=== PATIENT | female | born 1985 ===

== ENCOUNTER 2018-12-26 09:12 | Emergency (ER) | payer OTHER ==
[2018-12-26 09:15] VITALS: BMI 24.1
[2018-12-26 09:17] VITALS: RESP 18; O2SAT 97
[2018-12-26] MEDS ORDERED: Sodium Chloride 0.9% 1,000 ML IV STA (10:03)
[2018-12-26 10:22] LABS: BASO % 0.3 % (0.0-2.0); EOS % 0.3 % (0.0-4.0); HEMOGLOBIN 12.7 g/dL (12.0-16.0); LYMPH # 1.7 K/uL (1.0-4.3); LYMPH % 20.8 % (20.0-40.0); MEAN CELL VOLUME 90.4 fl (81.0-99.0); MEAN CORPUSCULAR HEMOGLOBIN 30.3 pg (27.0-31.0); MEAN CORPUSCULAR HGB CONC 33.6 g/dL (33.0-37.0); MEAN PLATELET VOLUME 6.3 fl (7.2-11.7); MONO # 1.1 K/uL (0.0-0.8); MONO % 13.4 % (0.0-10.0); NEUT # 5.4 K/uL (1.8-7.0); NEUT % 65.2 % (50.0-75.0); NRBC % 0.1 % (0.0-0.0); RBC 4.2 Mil/uL (3.80-5.20); RED CELL DISTRIBUTION WIDTH 12.5 % (11.5-14.5); WHITE BLOOD COUNT 8.3 K/uL (4.8-10.8)
--- NOTE | 2018-12-26 10:25 | ED PDOC ---
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 denies: Fever, Chills, Urinary Symptoms Additional History Per: Patient Additional Complaint(s): 33yo female, otherwise well, comes to ER reporting abdominal pain for the past 2 days. She states the pain is constant, with nausea, vomiting and diarrhea. patient denies any fever, chills, dysuria or hematuira. She denies known sick contacts or recent foreign travel. No medications taken prior to arrival. PMD: None Abnormal Vaginal Bleeding: No Past Medical History Reviewed: Historical Data, Nursing Documentation, Vital Signs Vital Signs: Last Vital Signs Temp 98.3 F 12/26/18 09:30 Pulse 65 12/26/18 09:30 Resp 18 12/26/18 09:30 BP 95/59 L 12/26/18 09:30 Pulse Ox 97 12/26/18 09:30 Primary Care Provider: FAMILY PROVIDER,NO - Medical History PMH: No Chronic Diseases - Surgical History Surgical History: No Surg Hx - Family History Family History: States: No Known Family Hx - Living Arrangements Living Arrangements: With Family - Social History Current smoker - smoking cessation education provided: No Alcohol: None Drugs: Denies - Home Medications Home Medications: Ambulatory Orders Medication Instructions Recorded Dicyclomine [Bentyl] 20 mg PO QID PRN #10 tab 12/26/18 Ondansetron ODT [Zofran ODT] 4 mg PO Q8H PRN #20 odt 12/26/18 - Allergies Allergies/Adverse Reactions: Allergies Allergy/AdvReac Type Severity Reaction Status Date / Time No Known Allergies Allergy Verified 12/26/18 09:46 Review of Systems ROS Statement: Except As Marked, All Systems Reviewed And Found Negative Constitutional: Negative for: Fever, Chills Gastrointestinal: Positive for: Nausea, Vomiting, Abdominal Pain, Diarrhea Genitourinary Female: Negative for: Dysuria, Frequency, Hematuria Physical Exam - Reviewed Nursing Documentation Reviewed: Yes Vital Signs Reviewed: Yes - Physical Exam Appears: Positive for: Uncomfortable Head Exam: Positive for: ATRAUMATIC, NORMAL INSPECTION, NORMOCEPHALIC Skin: Positive for: Normal Color, Warm, DRY Eye Exam: Positive for: Normal appearance, EOMI, PERRL Neck: Positive for: Normal, Supple Cardiovascular/Chest: Positive for: Regular Rate, Rhythm. Negative for: Tachycardia Respiratory: Positive for: Normal Breath Sounds. Negative for: Respiratory Distress Gastrointestinal/Abdominal: Positive for: Soft, Tenderness (periumbilical). Negative for: Mass, Guarding, Rebound Back: Positive for: Normal Inspection. Negative for: L CVA Tenderness, R CVA Tenderness Extremity: Positive for: Normal ROM Neurological/Psych: Positive for: Awake, Alert, Normal Tone - Laboratory Results Result Diagrams: 12/26/18 10:07 12/26/18 10:07 - ECG O2 Sat by Pulse Oximetry: 97 (RA) Pulse Ox Interpretation: Normal Medical Decision Making Medical Decision Making: Impression: Abdominal pain x 2 days Plan: -- Labs -- UA, UDip -- CT Abdomen/Pelvis -- IV Fluids -- Morphien2 mg IV -- Zofran 4mg IV 1115 Labs reviewed, patient with low platelet count Urinalysis reviewed, no clinically significant abnormalities 1251 CT Abdomen/Pelvis FINDINGS: LOWER THORAX: Small hiatal hernia identified with lung bases otherwise unremarkable appearing. LIVER: Unremarkable. No gross lesion or ductal dilatation. GALLBLADDER AND BILE DUCTS: Unremarkable. PANCREAS: Unremarkable. No gross lesion or ductal dilatation. SPLEEN: Unremarkable. ADRENALS: Unremarkable. No mass. KIDNEYS AND URETERS: Unremarkable. No hydronephrosis. No solid mass. VASCULATURE: Unremarkable. No aortic aneurysm. No aortic atherosclerotic calcification or mural plaque present. BOWEL: Evaluation of the gastrointestinal tract is limited due to the lack of oral contrast administration. No bowel obstruction. The majority of small and large bowel is decompressed this option of gas and a bit of retained fecal material at the mid large-bowel segment. No gross mural thickening. APPENDIX: Normal appendix. PERITONEUM: Unremarkable. No free fluid. No free air. LYMPH NODES: Unremarkable. No enlarged lymph nodes. BLADDER: Unremarkable. REPRODUCTIVE: Unremarkable. BONES: No acute fracture. OTHER FINDINGS: None. IMPRESSION: No bowel urinary tract obstruction, mesenteric edema, ascites or free intra peritoneal gas collection evident. Bowel is decompressed and limited evaluation with exception there is no bowel obstruction appreciated throughout the abdomen or pelvis. No gross pattern of enteritis or colitis. 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 On reassessment, patient reports improvement in her abdominal pain. Patient prescribed zofran for nausea and bentyl for abdominal pain; instructed to take medications as prescribed. Patient informed to follow up with PMD/Clinic in 2-3 days regarding thrombocytopenia due to unknown cause. Patient expresses understanding of findings and plan of care. Stable for discharge home. ScribeAttestation: Documented byLee Ann Loving acting as a scribe for Ariela Harry MD. Provider ScribeAttestation: All medical record entries made by the Scribe were at my direction and personally dictated by me. I have reviewed the chart and agree that the record accurately reflects my personal performance of the history, physical exam, medic al decision making, and the department course for this patient. I have also personally directed, reviewed, and agree with the discharge instructions and disposition. Disposition - Clinical Impression Clinical Impression: Gastroenteritis, Abdominal pain - Disposition Referrals: [facility] [Outside] Disposition: Routine/Home Disposition Time: 12:53 Condition: IMPROVED Prescriptions: Dicyclomine [Bentyl] 20 mg PO QID PRN #10 tab PRN Reason: Pain, Moderate (4-7) Ondansetron ODT [Zofran ODT] 4 mg PO Q8H PRN #20 odt PRN Reason: Nausea/Vomiting Instructions: Acute Abdomen (Belly Pain), Gastroenteritis (ED) Forms: [employer] (Yakut) Print Language: CHINESE
[2018-12-26 10:28] LABS: SQUAMOUS EPITHIAL 12 /hpf (0-5); URINE BACTERIA RARE (<OCC); URINE BILIRUBIN NEGATIVE (NEGATIVE); URINE BLOOD MODERATE (NEGATIVE); URINE COLOR YELLOW (YELLOW); URINE GLUCOSE (UA) NEG (NEGATIVE); URINE LEUKOCYTE ESTERASE NEG Leu/uL (Negative); URINE PROTEIN 30 mg/dL (NEGATIVE); URINE UROBILINOGEN 0.2-1.0 mg/dL (0.2-1.0)
[2018-12-26 10:29] LABS: INR 1.1; PROTHROMBIN TIME 12.8 Seconds (9.8-13.1)
[2018-12-26 10:29] LABS: URINE CLARITY SLIGHT-CLOUDY (Clear)
[2018-12-26 10:31] LABS: ALB/GLOB RATIO 1.4 (1.0-2.1); ALBUMIN 4.3 g/dL (3.5-5.0); ALT/SGPT 37 U/L (9-52); AST/SGOT 30 U/L (14-36); BLOOD UREA NITROGEN 7 mg/dl (7-17); CALCIUM 8.6 mg/dL (8.4-10.2); GFR NON-AFRICAN AMERICAN > 60; LIPASE 17 U/L (23-300)
[2018-12-26 10:32] LABS: PARTIAL THROMBOPLASTIN TIME 30.5 Seconds (25.6-37.1)
[2018-12-26] MEDS ORDERED: Sodium Chloride 0.9% 50 ML IV ONE (11:07)
[2018-12-26] MEDS ORDERED: Iohexol 300 100 ML IJ ONE (11:07)
--- NOTE | 2018-12-26 11:50 | CT ---
Date of service: 12/26/2018 PROCEDURE: CT Abdomen and Pelvis with contrast HISTORY: Periumbilical pain COMPARISON: None. TECHNIQUE: Following the intravenous administration of iodinated contrast material, a CT examination of the abdomen and pelvis was performed from the domes of the diaphragms to the symphysis pubis with reformatted datasets provided in axial, sagittal and coronal planes. Oral contrast was not administered as per referring physician request. Contrast dose: Omnipaque 300, 95 cc Radiation dose: Total exam DLP = 412.22 mGy-cm. This CT exam was performed using one or more of the following dose reduction techniques: Automated exposure control, adjustment of the mA and/or kV according to patient size, and/or use of iterative reconstruction technique. FINDINGS: LOWER THORAX: Small hiatal hernia identified with lung bases otherwise unremarkable appearing. LIVER: Unremarkable. No gross lesion or ductal dilatation. GALLBLADDER AND BILE DUCTS: Unremarkable. PANCREAS: Unremarkable. No gross lesion or ductal dilatation. SPLEEN: Unremarkable. ADRENALS: Unremarkable. No mass. KIDNEYS AND URETERS: Unremarkable. No hydronephrosis. No solid mass. VASCULATURE: Unremarkable. No aortic aneurysm. No aortic atherosclerotic calcification or mural plaque present. BOWEL: Evaluation of the gastrointestinal tract is limited due to the lack of oral contrast administration. No bowel obstruction. The majority of small and large bowel is decompressed this option of gas and a bit of retained fecal material at the mid large-bowel segment. No gross mural thickening. APPENDIX: Normal appendix. PERITONEUM: Unremarkable. No free fluid. No free air. LYMPH NODES: Unremarkable. No enlarged lymph nodes. BLADDER: Unremarkable. REPRODUCTIVE: Unremarkable. BONES: No acute fracture. OTHER FINDINGS: None. IMPRESSION: No bowel urinary tract obstruction, mesenteric edema, ascites or free intra peritoneal gas collection evident. Bowel is decompressed and limited evaluation with exception there is no bowel obstruction appreciated throughout the abdomen or pelvis. No gross pattern of enteritis or colitis.
[2018-12-26 15:02] VITALS: BP 106/67; PULSE 72; TEMP 99.7
== END 2018-12-26 15:09 | disposition home or self-care (01) ==
LOC: H.ER 09:12
DX: K52.9 Noninfective gastroenteritis and colitis, unspecified (principal); R10.9 Unspecified abdominal pain; Z79.899 Other long term (current) drug therapy
CPT/HCPCS: 74177; 80053; 81003; 83690; 85025; 85610; 85730; 96361; 96374; 96375; 99284; J1885; J2270; J2405; J7030; Q9967

== ENCOUNTER 2019-01-01 09:54 | Observation (INO) | payer OTHER ==
[2019-01-01 10:00] VITALS: BMI 23.2
--- NOTE | 2019-01-01 11:07 | ED PDOC ---
HPI: Abdomen Time Seen by Provider: 01/01/19 10:09 Chief Complaint (Nursing): Abdominal Pain Chief Complaint (Provider): Abdominal Pain History Per: Patient History/Exam Limitations: no limitations Location Of Pain/Discomfort: Other (Lower) Associated Symptoms: Back Pain Additional Complaint(s): 33 years old female presents to ER on referral from PMD for evaluation of lower abdominal pain and back pain. On her visit to PMD, patient was diagnosed with UTI and reports symptoms resolved with antibiotics. Patient currently has no other symptoms. PMD: Jovanni Raya Past Medical History Reviewed: Historical Data, Nursing Documentation, Vital Signs Vital Signs: Last Vital Signs Temp 98.2 F 01/01/19 10:11 Pulse 72 01/01/19 10:11 Resp 18 01/01/19 10:11 BP 96/60 L 01/01/19 10:11 Pulse Ox 100 01/01/19 10:11 Primary Care Provider: Jovanni Raya - Medical History PMH: No Chronic Diseases - Surgical History Surgical History: No Surg Hx - Family History Family History: States: Unknown Family Hx - Social History Current smoker - smoking cessation education provided: Yes Alcohol: Social Drugs: Denies - Home Medications Home Medications: Ambulatory Orders Medication Instructions Recorded predniSONE [predniSONE Tab] 60 mg PO DAILY 8 Days tab 01/02/19 - Allergies Allergies/Adverse Reactions: Allergies Allergy/AdvReac Type Severity Reaction Status Date / Time No Known Allergies Allergy Verified 12/26/18 09:46 Review of Systems ROS Statement: Except As Marked, All Systems Reviewed And Found Negative Gastrointestinal: Positive for: Abdominal Pain (lower. Resolved now) Musculoskeletal: Positive for: Back Pain (resolved now) Physical Exam - Reviewed Nursing Documentation Reviewed: Yes Vital Signs Reviewed: Yes - Physical Exam Appears: Positive for: Well, No Acute Distress Head Exam: Positive for: ATRAUMATIC, NORMOCEPHALIC Skin: Positive for: Normal Color, Warm, Dry Eye Exam: Positive for: Normal appearance, EOMI, PERRL ENT: Positive for: Normal ENT Inspection Neck: Positive for: Normal, Painless ROM, Supple Cardiovascular/Chest: Positive for: Regular Rate, Rhythm. Negative for: Murmur Respiratory: Positive for: Normal Breath Sounds. Negative for: Respiratory Distress Gastrointestinal/Abdominal: Positive for: Normal Exam, Soft. Negative for: Tenderness Back: Positive for: Normal Inspection. Negative for: L CVA Tenderness, R CVA Tenderness Extremity: Positive for: Normal ROM. Negative for: Pedal Edema, Deformity Neurological/Psych: Positive for: Awake, Alert, Oriented (x3) - Laboratory Results Result Diagrams: 01/02/19 06:10 01/02/19 06:10 - ECG O2 Sat by Pulse Oximetry: 100 (RA) Pulse Ox Interpretation: Normal Medical Decision Making Medical Decision Making: Time: 1037 MDM: Sent by PMD for repeat labs specifically look at platelets, otherwise asymptomatic 1237 Patient with platelets have 18, will be admitted to med surg, Dr. Hamm Will place consult with hematology Dr. Cramer. Scribe Attestation: Documented by Ena Koenig, acting as a scribe for Gertrude Stephenson MD. Provider Scribe Attestation: All medical record entries made by the Scribe were at my direction and personally dictated by me. I have reviewed the chart and agree that the record accurately reflects my personal performance of the history, physical exam, medical decision making, and the department course for this patient. I have also personally directed, reviewed, and agree with the discharge instructions and disposition. Disposition - Clinical Impression Clinical Impression: Thrombocytopenia - Disposition Disposition Time: 12:37 Condition: FAIR
[2019-01-01 11:14] LABS: SQUAMOUS EPITHIAL 9 /hpf (0-5); URINE BILIRUBIN NEGATIVE (NEGATIVE); URINE BLOOD MODERATE (NEGATIVE); URINE CLARITY SLIGHTY-CLOUDY (Clear); URINE COLOR YELLOW (YELLOW); URINE GLUCOSE (UA) NEG (NEGATIVE); URINE LEUKOCYTE ESTERASE NEG Leu/uL (Negative); URINE PROTEIN NEGATIVE (NEGATIVE); URINE UROBILINOGEN 0.2-1.0 mg/dL (0.2-1.0)
[2019-01-01 11:15] LABS: BASO % 0.3 % (0.0-2.0); EOS % 0.2 % (0.0-4.0); HEMOGLOBIN 12.8 g/dL (12.0-16.0); LYMPH # 1.5 K/uL (1.0-4.3); LYMPH % 13.8 % (20.0-40.0); MEAN CELL VOLUME 87.8 fl (81.0-99.0); MEAN CORPUSCULAR HEMOGLOBIN 29.8 pg (27.0-31.0); MEAN CORPUSCULAR HGB CONC 33.9 g/dL (33.0-37.0); MEAN PLATELET VOLUME 8.5 fl (7.2-11.7); MONO # 1.3 K/uL (0.0-0.8); MONO % 11.6 % (0.0-10.0); NEUT # 8.3 K/uL (1.8-7.0); NEUT % 74.1 % (50.0-75.0); NRBC % 0.1 % (0.0-0.0); RBC 4.3 Mil/uL (3.80-5.20); RED CELL DISTRIBUTION WIDTH 12.2 % (11.5-14.5)
[2019-01-01 11:16] LABS: BLOOD UREA NITROGEN 11 mg/dl (7-17); GFR NON-AFRICAN AMERICAN > 60
[2019-01-01 11:44] LABS: WHITE BLOOD COUNT 11.2 K/uL (4.8-10.8)
[2019-01-01 13:43] LABS: INR 1.1; PROTHROMBIN TIME 12.8 Seconds (9.8-13.1)
[2019-01-01 13:47] LABS: PARTIAL THROMBOPLASTIN TIME 25.9 Seconds (25.6-37.1)
[2019-01-01 14:03] LABS: BARBITURATES, UR NEGATIVE (NEGATIVE); BENZODIAZEPINES, UR NEGATIVE (NEGATIVE); OPIATES, UR NEGATIVE (NEGATIVE); PHENCYCLIDINE, UR NEGATIVE (NEGATIVE)
--- NOTE | 2019-01-01 14:25 | CP.PCM.HP ---
<Judith He - Last Filed: 01/01/19 15:16> History of Present Illness - History of Present Illness History of Present Illness: 33-year-old female presents to [facility] ED at the request of her PMD for abnormal lab results. She was last seen at [facility] ED on 12/26, 6 days prior to presentation for abdominal pain and her platelet count was 87. Today it is 18. She has noticed recent red spots along her upper abdomen laterally and on her right shoulder but denies any light headedness, bleeding, menorhhagia, nosebleeds, CP, SOB and fever. No previous episodes before. PMD: Dr Raya PMH: denies Surgical Hx: denies OBHx: no complications, denies menorrhagia Family Hx: denies Social: social tobacco (1 pack/week) and etoh (weekends), denies illicit drug use Present on Admission - Present on Admission Any Indicators Present on Admission: No Review of Systems - Review of Systems Review of Systems: all other systems reviewed and negative unless noted in HPI Past Patient History - Past Social History Alcohol: Social Drugs: Denies - CARDIAC Hx Cardiac Disorders: No - PULMONARY Hx Respiratory Disorders: No - MUSCULOSKELETAL/RHEUMATOLOGICAL Hx Musculoskeletal Disorders: Yes Hx Back Pain: Yes - GENITOURINARY/GYNECOLOGICAL Hx Genitourinary Disorders: Yes Hx Urinary Tract Infection: Yes - PSYCHIATRIC Hx Psychophysiologic Disorder: No Hx Substance Use: No - SURGICAL HISTORY Hx Surgeries: Yes Hx Section: Yes (X 1) - ANESTHESIA Hx Anesthesia: Yes Meds Allergies/Adverse Reactions: Allergies Allergy/AdvReac Type Severity Reaction Status Date / Time No Known Allergies Allergy Verified 12/26/18 09:46 Physical Exam - Constitutional Appears: Non-toxic, No Acute Distress - Head Exam Head Exam: NORMAL INSPECTION - Eye Exam Eye Exam: Normal appearance - ENT Exam ENT Exam: Mucous Membranes Moist - Cardiovascular Exam Cardiovascular Exam: REGULAR RHYTHM - GI/Abdominal Exam GI & Abdominal Exam: Normal Bowel Sounds, Soft. absent: Tenderness - Neurological Exam Neurological exam: Alert, Normal Gait, Oriented x3 - Psychiatric Exam Psychiatric exam: Normal Affect, Normal Mood - Skin Skin Exam: Normal Color, Warm Additional comments: rash - along pper abdomen, chest and right biceps area. Small, macular red spots. Results - Vital Signs Recent Vital Signs: Last Vital Signs Temp 98.2 F 01/01/19 10:11 Pulse 72 01/01/19 10:11 Resp 18 01/01/19 10:11 BP 96/60 L 01/01/19 10:11 Pulse Ox 100 01/01/19 12:51 - Labs Result Diagrams: 01/01/19 10:50 01/01/19 10:50 Labs: Laboratory Results - last 24 hr 01/01/19 01/01/19 01/01/19 10:50 10:50 10:50 WBC 11.2 H RBC 4.30 Hgb 12.8 Hct 37.7 MCV 87.8 D MCH 29.8 MCHC 33.9 RDW 12.2 Plt Count 18 L* D MPV 8.5 Neut % (Auto) 74.1 Lymph % (Auto) 13.8 L [place] % (Auto) 11.6 H Eos % (Auto) 0.2 Baso % (Auto) 0.3 Neut # (Auto) 8.3 H Lymph # (Auto) 1.5 [place] # (Auto) 1.3 H Eos # (Auto) 0.0 Baso # (Auto) 0.0 PT INR APTT Sodium 138 Potassium 3.8 Chloride 96 L Carbon Dioxide 33 H Anion Gap 13 BUN 11 Creatinine 0.6 L Est GFR ( Amer) > 60 Est GFR (Non-Af Amer) > 60 Random Glucose 100 Calcium 9.0 Urine Color Yellow Urine Clarity Slighty-cloudy Urine pH 7.0 Ur Specific Apex 1.008 Urine Protein Negative Urine Glucose (UA) Neg Urine Ketones Negative Urine Blood Moderate Urine Nitrate Negative Urine Bilirubin Negative Urine Urobilinogen 0.2-1.0 Ur Leukocyte Esterase Neg Urine RBC (Auto) 2 Urine Microscopic WBC 2 Ur Squamous Epith Cells 9 H Urine Opiates Screen Urine Methadone Screen Ur Barbiturates Screen Ur Phencyclidine Scrn Ur Amphetamines Screen U Benzodiazepines Scrn U Oth Cocaine Metabols U Cannabinoids Screen 01/01/19 01/01/19 13:12 13:12 WBC RBC Hgb Hct MCV MCH MCHC RDW Plt Count MPV Neut % (Auto) Lymph % (Auto) [place] % (Auto) Eos % (Auto) Baso % (Auto) Neut # (Auto) Lymph # (Auto) [place] # (Auto) Eos # (Auto) Baso # (Auto) PT 12.8 INR 1.1 APTT 25.9 Sodium Potassium Chloride Carbon Dioxide Anion Gap BUN Creatinine Est GFR ( Amer) Est GFR (Non-Af Amer) Random Glucose Calcium Urine Color Urine Clarity Urine pH Ur Specific Apex Urine Protein Urine Glucose (UA) Urine Ketones Urine Blood Urine Nitrate Urine Bilirubin Urine Urobilinogen Ur Leukocyte Esterase Urine RBC (Auto) Urine Microscopic WBC Ur Squamous Epith Cells Urine Opiates Screen Negative Urine Methadone Screen Negative Ur Barbiturates Screen Negative Ur Phencyclidine Scrn Negative Ur Amphetamines Screen Negative U Benzodiazepines Scrn Negative U Oth Cocaine Metabols Negative U Cannabinoids Screen Negative Assessment & Plan - Assessment and Plan (Free Text) Assessment: 33-year-old female presents to [facility] ED at the request of her PMD for thrombocytopenia; platelet ct 18. Plan: Thrombocytopenia -Platelet ct 18 (01/01), down from 87 on 12/26 -likely ITP -f/u HIV -f/u HCV -Heme/onc consulted, Dr Cramer, input and recs appreciated -s/p methylpredisolone 125 mg in ED -Solumedrol 40mg IV Q12H -Regular diet DVT Prophylaxis -SCD <Candis Hamm - Last Filed: 01/01/19 19:10> Results - Vital Signs Recent Vital Signs: Last Vital Signs Temp 97.2 F L 01/01/19 17:37 Pulse 69 01/01/19 18:01 Resp 19 01/01/19 18:01 BP 100/51 L 01/01/19 17:37 Pulse Ox 97 01/01/19 18:01 - Labs Result Diagrams: 01/01/19 10:50 01/01/19 10:50 Labs: Laboratory Results - last 24 hr 01/01/19 01/01/19 01/01/19 10:50 10:50 10:50 WBC 11.2 H RBC 4.30 Hgb 12.8 Hct 37.7 MCV 87.8 D MCH 29.8 MCHC 33.9 RDW 12.2 Plt Count 18 L* D Manual Plt Count MPV 8.5 Neut % (Auto) 74.1 Lymph % (Auto) 13.8 L [place] % (Auto) 11.6 H Eos % (Auto) 0.2 Baso % (Auto) 0.3 Neut # (Auto) 8.3 H Lymph # (Auto) 1.5 [place] # (Auto) 1.3 H Eos # (Auto) 0.0 Baso # (Auto) 0.0 PT INR APTT Sodium 138 Potassium 3.8 Chloride 96 L Carbon Dioxide 33 H Anion Gap 13 BUN 11 Creatinine 0.6 L Est GFR ( Amer) > 60 Est GFR (Non-Af Amer) > 60 Random Glucose 100 Calcium 9.0 Urine Color Yellow Urine Clarity Slighty-cloudy Urine pH 7.0 Ur Specific Apex 1.008 Urine Protein Negative Urine Glucose (UA) Neg Urine Ketones Negative Urine Blood Moderate Urine Nitrate Negative Urine Bilirubin Negative Urine Urobilinogen 0.2-1.0 Ur Leukocyte Esterase Neg Urine RBC (Auto) 2 Urine Microscopic WBC 2 Ur Squamous Epith Cells 9 H Urine Opiates Screen Urine Methadone Screen Ur Barbiturates Screen Ur Phencyclidine Scrn Ur Amphetamines Screen U Benzodiazepines Scrn U Oth Cocaine Metabols U Cannabinoids Screen 01/01/19 01/01/19 01/01/19 13:12 13:12 13:12 WBC RBC Hgb Hct MCV MCH MCHC RDW Plt Count Manual Plt Count 13 L* MPV Neut % (Auto) Lymph % (Auto) [place] % (Auto) Eos % (Auto) Baso % (Auto) Neut # (Auto) Lymph # (Auto) [place] # (Auto) Eos # (Auto) Baso # (Auto) PT 12.8 INR 1.1 APTT 25.9 Sodium Potassium Chloride Carbon Dioxide Anion Gap BUN Creatinine Est GFR ( Amer) Est GFR (Non-Af Amer) Random Glucose Calcium Urine Color Urine Clarity Urine pH Ur Specific Apex Urine Protein Urine Glucose (UA) Urine Ketones Urine Blood Urine Nitrate Urine Bilirubin Urine Urobilinogen Ur Leukocyte Esterase Urine RBC (Auto) Urine Microscopic WBC Ur Squamous Epith Cells Urine Opiates Screen Negative Urine Methadone Screen Negative Ur Barbiturates Screen Negative Ur Phencyclidine Scrn Negative Ur Amphetamines Screen Negative U Benzodiazepines Scrn Negative U Oth Cocaine Metabols Negative U Cannabinoids Screen Negative Attending/Attestation - Attestation I have personally seen and examined this patient.: Yes I have fully participated in the care of the patient.: Yes I have reviewed all pertinent clinical information: Yes Notes (Text): Agree with findings and plan as above.
[2019-01-01] MEDS ORDERED: methylPREDNISolone 40 MG in Sodium Chloride 0.9% 50 ML IVPB SCH (21:00)
[2019-01-01] MEDS: MethylPREDNISolone 40 mg Vial IVP SCH (22:08)
[2019-01-01 23:30] VITALS: RESP 18
--- NOTE | 2019-01-01 23:50 | CP.PCM.CON ---
History of Present Illness - History of Present Illness History of Present Illness: 33 year old female with no past medical history presenting with thrombocytopenia. The patient notes she was told to report to the ER for low platelets. Her platelets were found to be 18,000 in the ER. She does report to easy bruising. Of note, her platelets were 80,000 on last presentation to the ER a few days ago. Past medical history: None Past surgical history: Family history: Denies hematologic and oncologic problems Social history: Social tobacco and alcohol Allergies: NKA Review of systems: All remaining review of systems including HEENT, cardiovascular, respiratory, gastrointestinal, genitourinary, musculoskeletal, dermatologic, neurologic, and psychiatric are negative unless mentioned in the HPI Past Patient History - Past Medical History & Family History Past Medical History?: Yes - Past Social History Smoking Status: Current Some Days Smoker - CARDIAC Hx Cardiac Disorders: No - PULMONARY Hx Respiratory Disorders: No - HEMATOLOGICAL/ONCOLOGICAL Other/Comment: thrombocytopenia - MUSCULOSKELETAL/RHEUMATOLOGICAL Hx Falls: No - GENITOURINARY/GYNECOLOGICAL Hx Genitourinary Disorders: Yes Hx Urinary Tract Infection: Yes - PSYCHIATRIC Hx Substance Use: No (denies) - SURGICAL HISTORY Hx Surgeries: Yes Hx Section: Yes (X 1) - ANESTHESIA Hx Anesthesia: Yes Meds Allergies/Adverse Reactions: Allergies Allergy/AdvReac Type Severity Reaction Status Date / Time No Known Allergies Allergy Verified 12/26/18 09:46 - Medications Medications: Current Medications Acetaminophen (Tylenol 325mg Tab) 650 mg PO Q6 PRN PRN Reason: Pain, Mild (1-3) Methylprednisolone (Solu-Medrol) 40 mg IVP Q12 JOSUE Last Admin: 01/01/19 22:08 Dose: 40 mg Physical Exam - Head Exam Head Exam: ATRAUMATIC - Eye Exam Eye Exam: Normal appearance - ENT Exam ENT Exam: Mucous Membranes Dry - Respiratory Exam Respiratory Exam: NORMAL BREATHING PATTERN - Cardiovascular Exam Cardiovascular Exam: +S1, +S2 - GI/Abdominal Exam GI & Abdominal Exam: Normal Bowel Sounds - Extremities Exam Extremities exam: Positive for: normal inspection - Neurological Exam Neurological exam: Oriented x3 - Psychiatric Exam Psychiatric exam: Normal Affect, Normal Mood - Skin Skin Exam: Warm Results - Vital Signs Recent Vital Signs: Last Vital Signs Temp 97.8 F 01/01/19 23:29 Pulse 70 01/01/19 23:29 Resp 18 01/01/19 23:29 BP 96/58 L 01/01/19 23:29 Pulse Ox 98 01/01/19 23:29 - Labs Result Diagrams: 01/01/19 10:50 01/01/19 10:50 Labs: Laboratory Results - last 24 hr 01/01/19 01/01/19 01/01/19 10:50 10:50 10:50 WBC 11.2 H RBC 4.30 Hgb 12.8 Hct 37.7 MCV 87.8 D MCH 29.8 MCHC 33.9 RDW 12.2 Plt Count 18 L* D Manual Plt Count MPV 8.5 Neut % (Auto) 74.1 Lymph % (Auto) 13.8 L [place] % (Auto) 11.6 H Eos % (Auto) 0.2 Baso % (Auto) 0.3 Neut # (Auto) 8.3 H Lymph # (Auto) 1.5 [place] # (Auto) 1.3 H Eos # (Auto) 0.0 Baso # (Auto) 0.0 PT INR APTT Sodium 138 Potassium 3.8 Chloride 96 L Carbon Dioxide 33 H Anion Gap 13 BUN 11 Creatinine 0.6 L Est GFR ( Amer) > 60 Est GFR (Non-Af Amer) > 60 Random Glucose 100 Calcium 9.0 Urine Color Yellow Urine Clarity Slighty-cloudy Urine pH 7.0 Ur Specific [place] 1.008 Urine Protein Negative Urine Glucose (UA) Neg Urine Ketones Negative Urine Blood Moderate Urine Nitrate Negative Urine Bilirubin Negative Urine Urobilinogen 0.2-1.0 Ur Leukocyte Esterase Neg Urine RBC (Auto) 2 Urine Microscopic WBC 2 Ur Squamous Epith Cells 9 H Urine Opiates Screen Urine Methadone Screen Ur Barbiturates Screen Ur Phencyclidine Scrn Ur Amphetamines Screen U Benzodiazepines Scrn U Oth Cocaine Metabols U Cannabinoids Screen 01/01/19 01/01/19 01/01/19 13:12 13:12 13:12 WBC RBC Hgb Hct MCV MCH MCHC RDW Plt Count Manual Plt Count 13 L* MPV Neut % (Auto) Lymph % (Auto) [place] % (Auto) Eos % (Auto) Baso % (Auto) Neut # (Auto) Lymph # (Auto) [place] # (Auto) Eos # (Auto) Baso # (Auto) PT 12.8 INR 1.1 APTT 25.9 Sodium Potassium Chloride Carbon Dioxide Anion Gap BUN Creatinine Est GFR ( Amer) Est GFR (Non-Af Amer) Random Glucose Calcium Urine Color Urine Clarity Urine pH Ur Specific [place] Urine Protein Urine Glucose (UA) Urine Ketones Urine Blood Urine Nitrate Urine Bilirubin Urine Urobilinogen Ur Leukocyte Esterase Urine RBC (Auto) Urine Microscopic WBC Ur Squamous Epith Cells Urine Opiates Screen Negative Urine Methadone Screen Negative Ur Barbiturates Screen Negative Ur Phencyclidine Scrn Negative Ur Amphetamines Screen Negative U Benzodiazepines Scrn Negative U Oth Cocaine Metabols Negative U Cannabinoids Screen Negative Assessment & Plan (1) Thrombocytopenia Assessment and Plan: likely ITP - no bleeding on steroids plt transfusion if develops bleeding repeat CBC in AM Thank you for this interesting consult Status: Acute
[2019-01-02 06:57] LABS: HEMOGLOBIN 12.8 g/dL (12.0-16.0); MEAN CORPUSCULAR HEMOGLOBIN 29.8 pg (27.0-31.0); MEAN CORPUSCULAR HGB CONC 33.9 g/dL (33.0-37.0); RBC 4.28 Mil/uL (3.80-5.20); RED CELL DISTRIBUTION WIDTH 12.3 % (11.5-14.5); WHITE BLOOD COUNT 12.1 K/uL (4.8-10.8)
[2019-01-02 07:14] LABS: ALB/GLOB RATIO 1.3 (1.0-2.1); ALBUMIN 4.1 g/dL (3.5-5.0); ALT/SGPT 31 U/L (9-52); AST/SGOT 24 U/L (14-36); BLOOD UREA NITROGEN 12 mg/dl (7-17); CALCIUM 8.7 mg/dL (8.4-10.2); GFR NON-AFRICAN AMERICAN > 60
[2019-01-02 09:33] VITALS: BP 101/65; PULSE 66; TEMP 97.7
[2019-01-02] MEDS: MethylPREDNISolone 40 mg Vial IVP SCH (09:49)
--- NOTE | 2019-01-02 12:36 | CP.PCM.DIS ---
<Judith He - Last Filed: 01/02/19 12:43> Provider - Provider Date of Admission: 01/01/19 12:36 Attending physician: Candis Hamm DO Consults: 01/01/19 12:39 Hematology Oncology Consult Stat Comment: Consulting Provider: Krzysztof Cramer Consulting Physician: Krzysztof Cramer Reason for Consult: thrombocytopenia Time Spent in preparation of Discharge (in minutes): 20 Diagnosis - Discharge Diagnosis (1) Thrombocytopenia Status: Acute Hospital Course - Lab Results Lab Results: Most Recent Lab Values WBC 12.1 K/uL (4.8-10.8) H 01/02/19 06:10 RBC 4.28 Mil/uL (3.80-5.20) 01/02/19 06:10 Hgb 12.8 g/dL (12.0-16.0) 01/02/19 06:10 Hct 37.7 % (34.0-47.0) 01/02/19 06:10 MCV 88.0 fl (81.0-99.0) 01/02/19 06:10 MCH 29.8 pg (27.0-31.0) 01/02/19 06:10 MCHC 33.9 g/dL (33.0-37.0) 01/02/19 06:10 RDW 12.3 % (11.5-14.5) 01/02/19 06:10 Plt Count 50 K/uL (130-400) L D 01/02/19 06:10 Manual Plt Count 13 K/uL (130-400) L* 01/01/19 13:12 MPV 8.5 fl (7.2-11.7) 01/01/19 10:50 Neut % (Auto) 74.1 % (50.0-75.0) 01/01/19 10:50 Lymph % (Auto) 13.8 % (20.0-40.0) L 01/01/19 10:50 [place] % (Auto) 11.6 % (0.0-10.0) H 01/01/19 10:50 Eos % (Auto) 0.2 % (0.0-4.0) 01/01/19 10:50 Baso % (Auto) 0.3 % (0.0-2.0) 01/01/19 10:50 Neut # (Auto) 8.3 K/uL (1.8-7.0) H 01/01/19 10:50 Lymph # (Auto) 1.5 K/uL (1.0-4.3) 01/01/19 10:50 [place] # (Auto) 1.3 K/uL (0.0-0.8) H 01/01/19 10:50 Eos # (Auto) 0.0 K/uL (0.0-0.7) 01/01/19 10:50 Baso # (Auto) 0.0 K/uL (0.0-0.2) 01/01/19 10:50 PT 12.8 Seconds (9.8-13.1) 01/01/19 13:12 INR 1.1 01/01/19 13:12 APTT 25.9 Seconds (25.6-37.1) 01/01/19 13:12 Sodium 138 mmol/l (132-148) 01/02/19 06:10 Potassium 4.1 MMOL/L (3.6-5.0) 01/02/19 06:10 Chloride 97 mmol/L (98-107) L 01/02/19 06:10 Carbon Dioxide 33 mmol/L (22-30) H 01/02/19 06:10 Anion Gap 12 (10-20) 01/02/19 06:10 BUN 12 mg/dl (7-17) 01/02/19 06:10 Creatinine 0.5 mg/dl (0.7-1.2) L 01/02/19 06:10 Est GFR ( Amer) > 60 01/02/19 06:10 Est GFR (Non-Af Amer) > 60 01/02/19 06:10 Random Glucose 127 mg/dL (65-105) H 01/02/19 06:10 Calcium 8.7 mg/dL (8.4-10.2) 01/02/19 06:10 Total Bilirubin 0.3 mg/dl (0.2-1.3) 01/02/19 06:10 AST 24 U/L (14-36) 01/02/19 06:10 ALT 31 U/L (9-52) 01/02/19 06:10 Alkaline Phosphatase 86 U/L (38-126) 01/02/19 06:10 Total Protein 7.2 G/DL (6.3-8.2) 01/02/19 06:10 Albumin 4.1 g/dL (3.5-5.0) 01/02/19 06:10 Globulin 3.1 gm/dL (2.2-3.9) 01/02/19 06:10 Albumin/Globulin Ratio 1.3 (1.0-2.1) 01/02/19 06:10 Urine Color Yellow (YELLOW) 01/01/19 10:50 Urine Clarity Slighty-cloudy (Clear) 01/01/19 10:50 Urine pH 7.0 (5.0-8.0) 01/01/19 10:50 Ur Specific [place] 1.008 (1.003-1.030) 01/01/19 10:50 Urine Protein Negative mg/dL (NEGATIVE) 01/01/19 10:50 Urine Glucose (UA) Neg mg/dL (NEGATIVE) 01/01/19 10:50 Urine Ketones Negative mg/dL (NEGATIVE) 01/01/19 10:50 Urine Blood Moderate (NEGATIVE) 01/01/19 10:50 Urine Nitrate Negative (NEGATIVE) 01/01/19 10:50 Urine Bilirubin Negative (NEGATIVE) 01/01/19 10:50 Urine Urobilinogen 0.2-1.0 mg/dL (0.2-1.0) 01/01/19 10:50 Ur Leukocyte Esterase Neg Marj/uL (Negative) 01/01/19 10:50 Urine RBC (Auto) 2 /hpf (0-3) 01/01/19 10:50 Urine Microscopic WBC 2 /hpf (0-5) 01/01/19 10:50 Ur Squamous Epith Cells 9 /hpf (0-5) H 01/01/19 10:50 Urine Opiates Screen Negative (NEGATIVE) 01/01/19 13:12 Urine Methadone Screen Negative (NEGATIVE) 01/01/19 13:12 Ur Barbiturates Screen Negative (NEGATIVE) 01/01/19 13:12 Ur Phencyclidine Scrn Negative (NEGATIVE) 01/01/19 13:12 Ur Amphetamines Screen Negative (NEGATIVE) 01/01/19 13:12 U Benzodiazepines Scrn Negative (NEGATIVE) 01/01/19 13:12 U Oth Cocaine Metabols Negative (NEGATIVE) 01/01/19 13:12 U Cannabinoids Screen Negative (NEGATIVE) 01/01/19 13:12 HIV-1 Ab Rapid Screen Non reactive (NON REAC) 01/02/19 06:10 - Hospital Course Hospital Course: 33-year-old female presented to [facility] ED at the request of her PMD for abnormal lab results. She was last seen at [facility] ED on 12/26, 6 days prior to presentation for abdominal pain and her platelet count was 87 on admission it was 18, manual 13. She has noticed recent red spots along her upper abdomen laterally and on her right shoulder but denies any light headedness, bleeding, menorhhagia, nosebleeds, CP, SOB and fever. No previous episodes before. After IV solumedrol 40 Q12, platelets increased to 50. Likely secondary to ITP. Will dc on prednison 60mg daily for 8 days with follow up [facility]. Pt instructed to get labs 01/08 (RX given on discharge) prior to follow up apt 01/09. Plan to taper prednisone 10mg weekly until platelets normalize, as per Dr Cramer. Follow-up plan extensively discussed with pt and , both verbally agree and understand. Discharge Exam - Head Exam Head Exam: ATRAUMATIC - Eye Exam Eye Exam: Normal appearance - ENT Exam ENT Exam: Mucous Membranes Moist - Respiratory Exam Respiratory Exam: NORMAL BREATHING PATTERN, UNREMARKABLE. absent: Respiratory Distress - Cardiovascular Exam Cardiovascular Exam: REGULAR RHYTHM - GI/Abdominal Exam GI & Abdominal Exam: Soft. absent: Tenderness - Extremities Exam Extremities exam: normal inspection - Neurological Exam Neurological exam: Alert, Normal Gait, Oriented x3 - Psychiatric Exam Psychiatric exam: Normal Affect, Normal Mood - Skin Skin Exam: Dry, Normal Color, Warm Additional comments: rash - along pper abdomen, chest and right biceps area. Small, macular red spots; petechiae Discharge Plan - Discharge Medications Prescriptions: predniSONE [predniSONE Tab] 60 mg PO DAILY 8 Days tab - Follow Up Plan Condition: FAIR Disposition: HOME/ ROUTINE Instructions: Constipation in Adults, High Fiber Diet, Immune Thrombocytopenia (ITP) (DC) Additional Instructions: CBC and platelet ct 01/08 (RX given on discharge) and follow up Dr He [facility] 01/09 @ 2:40pm [facility] <Adan Huertas D - Last Filed: 01/02/19 17:50> Provider - Provider Date of Admission: 01/01/19 12:36 Attending physician: Candis Hamm DO Consults: 01/01/19 12:39 Hematology Oncology Consult Stat Comment: Consulting Provider: Krzysztof Cramer Consulting Physician: Krzysztof Cramer Reason for Consult: thrombocytopenia Hospital Course - Lab Results Lab Results: Most Recent Lab Values WBC 12.1 K/uL (4.8-10.8) H 01/02/19 06:10 RBC 4.28 Mil/uL (3.80-5.20) 01/02/19 06:10 Hgb 12.8 g/dL (12.0-16.0) 01/02/19 06:10 Hct 37.7 % (34.0-47.0) 01/02/19 06:10 MCV 88.0 fl (81.0-99.0) 01/02/19 06:10 MCH 29.8 pg (27.0-31.0) 01/02/19 06:10 MCHC 33.9 g/dL (33.0-37.0) 01/02/19 06:10 RDW 12.3 % (11.5-14.5) 01/02/19 06:10 Plt Count 50 K/uL (130-400) L D 01/02/19 06:10 Manual Plt Count 13 K/uL (130-400) L* 01/01/19 13:12 MPV 8.5 fl (7.2-11.7) 01/01/19 10:50 Neut % (Auto) 74.1 % (50.0-75.0) 01/01/19 10:50 Lymph % (Auto) 13.8 % (20.0-40.0) L 01/01/19 10:50 [place] % (Auto) 11.6 % (0.0-10.0) H 01/01/19 10:50 Eos % (Auto) 0.2 % (0.0-4.0) 01/01/19 10:50 Baso % (Auto) 0.3 % (0.0-2.0) 01/01/19 10:50 Neut # (Auto) 8.3 K/uL (1.8-7.0) H 01/01/19 10:50 Lymph # (Auto) 1.5 K/uL (1.0-4.3) 01/01/19 10:50 [place] # (Auto) 1.3 K/uL (0.0-0.8) H 01/01/19 10:50 Eos # (Auto) 0.0 K/uL (0.0-0.7) 01/01/19 10:50 Baso # (Auto) 0.0 K/uL (0.0-0.2) 01/01/19 10:50 PT 12.8 Seconds (9.8-13.1) 01/01/19 13:12 INR 1.1 01/01/19 13:12 APTT 25.9 Seconds (25.6-37.1) 01/01/19 13:12 Sodium 138 mmol/l (132-148) 01/02/19 06:10 Potassium 4.1 MMOL/L (3.6-5.0) 01/02/19 06:10 Chloride 97 mmol/L (98-107) L 01/02/19 06:10 Carbon Dioxide 33 mmol/L (22-30) H 01/02/19 06:10 Anion Gap 12 (10-20) 01/02/19 06:10 BUN 12 mg/dl (7-17) 01/02/19 06:10 Creatinine 0.5 mg/dl (0.7-1.2) L 01/02/19 06:10 Est GFR ( Amer) > 60 01/02/19 06:10 Est GFR (Non-Af Amer) > 60 01/02/19 06:10 Random Glucose 127 mg/dL (65-105) H 01/02/19 06:10 Calcium 8.7 mg/dL (8.4-10.2) 01/02/19 06:10 Total Bilirubin 0.3 mg/dl (0.2-1.3) 01/02/19 06:10 AST 24 U/L (14-36) 01/02/19 06:10 ALT 31 U/L (9-52) 01/02/19 06:10 Alkaline Phosphatase 86 U/L (38-126) 01/02/19 06:10 Total Protein 7.2 G/DL (6.3-8.2) 01/02/19 06:10 Albumin 4.1 g/dL (3.5-5.0) 01/02/19 06:10 Globulin 3.1 gm/dL (2.2-3.9) 01/02/19 06:10 Albumin/Globulin Ratio 1.3 (1.0-2.1) 01/02/19 06:10 Urine Color Yellow (YELLOW) 01/01/19 10:50 Urine Clarity Slighty-cloudy (Clear) 01/01/19 10:50 Urine pH 7.0 (5.0-8.0) 01/01/19 10:50 Ur Specific [place] 1.008 (1.003-1.030) 01/01/19 10:50 Urine Protein Negative mg/dL (NEGATIVE) 01/01/19 10:50 Urine Glucose (UA) Neg mg/dL (NEGATIVE) 01/01/19 10:50 Urine Ketones Negative mg/dL (NEGATIVE) 01/01/19 10:50 Urine Blood Moderate (NEGATIVE) 01/01/19 10:50 Urine Nitrate Negative (NEGATIVE) 01/01/19 10:50 Urine Bilirubin Negative (NEGATIVE) 01/01/19 10:50 Urine Urobilinogen 0.2-1.0 mg/dL (0.2-1.0) 01/01/19 10:50 Ur Leukocyte Esterase Neg Marj/uL (Negative) 01/01/19 10:50 Urine RBC (Auto) 2 /hpf (0-3) 01/01/19 10:50 Urine Microscopic WBC 2 /hpf (0-5) 01/01/19 10:50 Ur Squamous Epith Cells 9 /hpf (0-5) H 01/01/19 10:50 Urine Opiates Screen Negative (NEGATIVE) 01/01/19 13:12 Urine Methadone Screen Negative (NEGATIVE) 01/01/19 13:12 Ur Barbiturates Screen Negative (NEGATIVE) 01/01/19 13:12 Ur Phencyclidine Scrn Negative (NEGATIVE) 01/01/19 13:12 Ur Amphetamines Screen Negative (NEGATIVE) 01/01/19 13:12 U Benzodiazepines Scrn Negative (NEGATIVE) 01/01/19 13:12 U Oth Cocaine Metabols Negative (NEGATIVE) 01/01/19 13:12 U Cannabinoids Screen Negative (NEGATIVE) 01/01/19 13:12 HIV-1 Ab Rapid Screen Non reactive (NON REAC) 01/02/19 06:10 Attending/Attestation - Attestation I have personally seen and examined this patient.: Yes I have fully participated in the care of the patient.: Yes I have reviewed all pertinent clinical information, including history, physical exam and plan: Yes Notes (Text): 01/02/19 17:49 Patient seen and examined with resident. Case discussed and agreed with assessment. Patient discharged in stable condition.
--- NOTE | 2019-01-02 22:44 | CP.PCM.PN ---
Subjective - Date & Time of Evaluation Date of Evaluation: 01/02/19 Time of Evaluation: 11:00 - Subjective Subjective: No complaints. Objective - Vital Signs/Intake and Output Vital Signs (last 24 hours): Temp Pulse Resp BP Pulse Ox 97.7 F 66 18 101/65 97 01/02/19 09:00 01/02/19 09:00 01/02/19 09:00 01/02/19 09:00 01/02/19 09:00 - Labs Labs: 01/02/19 06:10 01/02/19 06:10 PT 12.8 Seconds (9.8-13.1) 01/01/19 13:12 INR 1.1 01/01/19 13:12 APTT 25.9 Seconds (25.6-37.1) 01/01/19 13:12 - Head Exam Head Exam: ATRAUMATIC - Eye Exam Eye Exam: Normal appearance - ENT Exam ENT Exam: Mucous Membranes Dry - Respiratory Exam Respiratory Exam: NORMAL BREATHING PATTERN - Cardiovascular Exam Cardiovascular Exam: +S1, +S2 - GI/Abdominal Exam GI & Abdominal Exam: Normal Bowel Sounds Assessment and Plan (1) Thrombocytopenia Assessment & Plan: secondary to ITP improving with steroids outpatient steroid taper Status: Acute
[2019-01-03 12:45] VITALS: O2SAT 100
== END 2019-01-02 14:30 | disposition home or self-care (01) ==
LOC: H.ER 09:54 → INTOOBSV 12:36 → H.ERHOLD 12:36 → H.MEDSURG1 17:55
PROVIDERS: ADMIT Student in an Organized Health Care Education/Training Program; ATTEND Student in an Organized Health Care Education/Training Program
DX: D69.3 Immune thrombocytopenic purpura (principal); N39.0 Urinary tract infection, site not specified; F17.210 Nicotine dependence, cigarettes, uncomplicated; Z87.440 Personal history of urinary (tract) infections
CPT/HCPCS: 36415; 80048; 80053; 80324; 80345; 80346; 80349; 80353; 80358; 80361; 81003; 81025; 83992; 85025; 85027; 85610; 85730; 86803; 87390; 96374; 96376; 99283; G0378; J2920; J2930